=== PATIENT | male | born 1965 | race Caucasian/White ===

== ENCOUNTER → 2018-05-23 | Day surgery (SDC) | payer OTHER ==
[~2018-05-23] MED LIST: ASPIRIN EC 325 MG TAB PO ONE; ATROPINE SULFATE 1 MG/10 ML SYR IVP PRN; CLOPIDOGREL BISULFATE 75 MG TAB ONE; CLOPIDOGREL BISULFATE 75 MG TAB PO ONE; DIAZEPAM 5 MG TAB ONE; DIAZEPAM 5 MG TAB PO ONE; FAMOTIDINE 20 MG TAB ONE; FAMOTIDINE 20 MG TAB PO ONE; HYDROCODONE/APAP 5/325 TAB PO PRN; IOPAMIDOL (ISOVUE-370) 150 ML BTL IV ONE; LIDOCAINE 1% 300 MG/30 ML SDV ONE; METOPROLOL TARTRATE 5 MG/5 ML INJ ONE; MIDAZOLAM 2 MG/2 ML VIAL ONE; NITROGLYCERIN 0.4 MG BTL SL PRN; NS 1,000 ML IV ONE; ONDANSETRON 4 MG/2 ML VIAL IVP PRN; OXYCODONE/APAP 5/325 TAB PO PRN; diphenhydrAMINE 25 MG CAP PO ONE; fentaNYL 100 MCG/2 ML INJ ONE; hydrALAZINE 20 MG/ML VIAL ONE
[2018-05-23 06:58] LABS: PLATELET COUNT 216 10^3/uL (150-400)
[2018-05-23 07:08] LABS: INR 0.95 (0.83-1.16); PROTIME(PATIENT) 12.3 SEC (12.0-15.0)
--- NOTE | 2018-05-23 07:14 | PDHPUP ---
History & Physical Update H&P update statement: This history and physical update is based on an assessment of the patient which was completed after admission or registration (within 24 hours), but prior to the surgery/procedure. H&P update: H&P reviewed & patient examined
--- NOTE | 2018-05-23 07:14 | PDPROPOC ---
Sedation Plan of Care Sedation Plan of Care: mental status noted, patient educated of risks, benefits , alternatives, patient can tolerate sedation ASA Classification: ASA 2 Planned drugs: fentanyl, midazolam Mallampati Score: Class 2 Mallampati Reference Image: Patient passed 3-3-2 rule?: Yes
--- NOTE | 2018-05-23 11:47 | CPIP ---
[f rep st] INVASIVE CARDIAC PROCEDURE DATE OF PROCEDURE: 05/23/2018 INDICATION FOR PROCEDURE: Unstable angina, history of coronary disease. PROCEDURE: 1. Nonselective right groin sheathogram. 2. Bilateral coronary angiography. 3. Left heart catheterization. 4. Left ventriculogram. HISTORY: Briefly, this is a 52-year-old male with history of coronary artery disease with PCI to the LAD done some years ago. The patient has been complaining of burning in his chest with exertion. H e did have an outpatient TMET apparently, which was normal; however, given the patient's continued sy mptoms as well as history of LAD stent, the patient was consented for left heart catheterization. DESCRIPTION OF PROCEDURE: After informed consent, the patient was brought to [facility] where the right diana in was prepped and draped in sterile fashion. Using lidocaine, a short 6-Sami sheath in the right common femoral artery verified angiographically. Through this 6-Sami sheath, a JL4 catheter was adv anced to the left coronary artery. Images of the left coronary artery revealed normal left main. Le ft circumflex artery revealed normal, but small left circumflex artery, which gave off tiny marginal. The LAD had a stent in its proximal portion with minimal in-stent restenosis proximally. The LAD g ave off a large diagonal artery in its midportion. At the bifurcation of the diagonal artery, the LA D had proximal 30% tubular disease. Distally, the LAD appeared to be widely patent and free of disea se. There was a small diagonal artery coming off more proximal the LAD, which was healthy and free o f disease. After these images were obtained, the JL4 catheter was removed. The JR4 catheter was advanced to the right coronary artery. Images of the right coronary artery revealed normal ostial RCA, normal prox, mid, distal RCA. RPD and RPLS appeared to be healthy and free of disease. After these images were obtained, the JR4 catheter was removed. The pigtail catheter was advanced to left ventricle. EDP is 12 mmHg. Left ventriculogram in the VERMA projection showed an EF of 55% with no wall motion abnormalities. There is no pullback gradient between the LV and the aorta. The pigt ail catheter was removed over a 0.035 wire. Right groin was closed with manual pressure. Patient to lerated the procedure well with no complications. IMPRESSION: 1. Patent stent in the proximal left anterior descending with only minimal in-stent restenosis. 2. 30% mid left anterior descending at the bifurcation of a large diagonal artery. 3. Normal left circumflex and right coronary artery. 4. Normal ejection fraction. PLAN: The patient's chest pain potentially could be coming from GERD versus uncontrolled hypertensio n. We will institute strict medical therapy as an outpatient. The patient will be discharged home meri [facility]cgraw this morning. /[id number]/MODL
--- NOTE | 2018-05-23 12:52 | CPEKG ---
Test Reason : OPEN Blood Pressure : / mmHG Vent. Rate : 086 BPM Atrial Rate : 087 BPM P-R Int : 182 ms QRS Dur : 084 ms QT Int : 366 ms P-R-T Axes : 038 -24 054 degrees QTc Int : 438 ms Sinus rhythm Borderline left axis deviation Abnormal R-wave progression, early transition Confirmed by Kevin Coates ([id number] on 05/23/2018 12:52:00 PM Referred By: Brian Llanos Confirmed By:Kevin Coates
== END | disposition home or self-care (01) ==
LOC: FCATH 06:14
PROVIDERS: ATTEND Internal Medicine Cardiovascular Disease
PROC: B2111ZZ Fluoroscopy of Multiple Coronary Arteries using Low Osmolar Contrast (ICD-10-PCS; principal; 2018-05-23)
PROC: B2151ZZ Fluoroscopy of Left Heart using Low Osmolar Contrast (ICD-10-PCS; principal; 2018-05-23)
PROC: 4A023N7 Measurement of Cardiac Sampling and Pressure, Left Heart, Percutaneous Approach (ICD-10-PCS; principal; 2018-05-23)
DX: I25.110 Atherosclerotic heart disease of native coronary artery with unstable angina pectoris (principal); I25.2 Old myocardial infarction; Z95.5 Presence of coronary angioplasty implant and graft; R78.5 Finding of other psychotropic drug in blood; M54.9 Dorsalgia, unspecified
CPT/HCPCS: J0360; J1644; J2250; J3010; Q9967